=== PATIENT | female | born 1955 | race Caucasian/White ===

== ENCOUNTER 2017-02-03 10:25 | Outpatient (CLI) | payer OTHER ==
--- NOTE | 2017-02-04 13:22 | Mammography Report ---
DIGITAL SCREENING MAMMOGRAM: 02/03/2017 CLINICAL INDICATION: A 62-year-old, for screening. COMPARISON: 01/2015, 10/2007. TECHNIQUE: Routine CC and MLO projections were obtained of the breasts. FINDINGS: Parenchymal tissue within both breasts is heterogeneously dense, which may lower the sensi tivity of mammography; however, there are no dominant masses, suspicious microcalcifications, or seco ndary signs of malignancy. In comparison to the previous studies, there are no significant changes. ASSESSMENT: NO MAMMOGRAPHIC EVIDENCE OF MALIGNANCY. NO SIGNIFICANT INTERVAL CHANGES. RECOMMENDATION: Screening mammography is recommended annually. BIRADS category 1 - negative. STANDARD QUALIFYING STATEMENTS 1. This examination was reviewed with the aid of Computed-Aided Detection (CAD). 2. A negative or benign imaging report should not delay biopsy if clinically suspicious findings are present. Consider surgical consultation if warranted. More than 5% of cancers are not identified by i maging. 3. Dense breasts may obscure an underlying neoplasm. JOB #: [id number] EXT JOB #:[id number]
== END 2017-02-03 10:26 | disposition home or self-care (01) ==
LOC: DI 10:25
PROVIDERS: ATTEND Family Medicine
DX: Z12.31 Encounter for screening mammogram for malignant neoplasm of breast (principal)
CPT/HCPCS: 77067

== ENCOUNTER 2018-03-24 12:08 | Outpatient (CLI) | payer OTHER ==
--- NOTE | 2018-03-24 16:21 | Ultrasound Report ---
Reason: THYROID NODULES Procedure Date: 03/24/2018 Accession Number: [id number] / [id number] Procedure: US - Head or Neck Soft Tissue CPT Code: FULL RESULT: EXAM: THYROID ULTRASOUND EXAM DATE: 03/24/2018 01:54 PM. CLINICAL HISTORY: THYROID NODULES. COMPARISON: HEAD OR NECK SOFT TISSUE 05/17/2016 8:41 AM. TECHNIQUE: Real time sonographic imaging of the thyroid was performed by the mill labor supervisor. Multiple vaccine customer representative static images were saved for review. FINDINGS: THYROID GLAND: Right Lobe: 4.2 x 1.2 x 1.4 cm, volume 3.7 cc. Normal background echotexture. Right Lobe Nodules: Two cystic nodules measuring up to 0.4 cm as well as one solid nodule measuring up to 0.7 cm with calcifications. Left Lobe: 3.2 x 1.0 x 1.1 cm, volume 1.8 cc. Normal background echotexture. Left Lobe Nodules: A 1.1 cm solid-appearing vascular nodule as well as a 0.7 cm solid-appearing heterogeneous nodule as well as a 0.8 cm solid-appearing nodule. Isthmus: 0.3 cm AP. Isthmic Nodules: None. LYMPH NODES: No adenopathy demonstrated in the central or lateral compartment. OTHER: None. IMPRESSION: The 1.1 cm left lobe nodule meets FNA criteria with size over 1 cm and intermediate suspicion features by JUNE guidelines. Recommend FNA of the left 1.1 cm dominant solid nodule. Management recommendations are based on 2015 [place] [employer] Management Guidelines for Adult Patients with Thyroid Nodules and Differentiated Thyroid Cancer. RADIA
== END 2018-03-24 12:09 | disposition home or self-care (01) ==
LOC: DI 12:08
PROVIDERS: ATTEND Nurse Practitioner Family
DX: E04.2 Nontoxic multinodular goiter (principal)
CPT/HCPCS: 76536